=== PATIENT | female | born 1970 | race Caucasian/White ===

== ENCOUNTER 2018-06-08 16:53 | Inpatient (IN) | payer MEDICAID ==
[~2018-06-08] VITALS: Ht 149.9 cm; Wt 169.0 kg
[2018-06-08 18:23] LABS: BASOPHIL % 0.3 % (0-2); PLATELET COUNT 237 x10^3mcL (130-400)
[2018-06-08 18:27] LABS: RED CELL DISTRIBUTION WIDTH 15.4 % (11.5-14.5)
[2018-06-08 18:35] LABS: CALCIUM 8.8 mg/dL (8.5-10.1); CARBON DIOXIDE 32.1 mmol/L (21-32); CHLORIDE SERUM 103 mmol/L (98-107); CREATININE SERUM 0.8 mg/dL (0.6-1.0); GFR1 > 60 mL/min; GLUCOSE SERUM 118 mg/dL (74-106); SODIUM SERUM 140 mmol/L (136-145)
[2018-06-08 18:40] LABS: ALBUMIN 3.7 g/dL (3.4-5.0); ALKALINE PHOSPHATASE 82 U/L (46-116); ALT/SGPT 39 U/L (14-59); AST/SGOT 48 U/L (15-37); BILIRUBIN TOTAL 0.51 mg/dL (0.20-1.00); TOTAL PROTEIN, SERUM 8.5 g/dL (6.4-8.2)
[2018-06-08 21:19] LABS: CHOLESTEROL/HDL RATIO 3.3; MAGNESIUM 1.9 mg/dL (1.8-2.4)
[2018-06-08] MEDS ORDERED: PEPCID20 MG PO (21:23)
[2018-06-08] MEDS ORDERED: BANOPHEN25 MG PO (21:24)
[2018-06-08] MEDS ORDERED: ASPIR 8181 MG PO (21:25)
[2018-06-08] MEDS ORDERED: ZOFRAN8 MG PO (21:25)
[2018-06-08] MEDS ORDERED: GLIPIZIDE5 M2 PO (21:25)
[2018-06-08] MEDS ORDERED: LEVOXYL0.088 MG PO (21:26)
[2018-06-08] MEDS ORDERED: OMEGA-31000 MG PO (21:26)
[2018-06-08] MEDS ORDERED: BENAZEPRIL HYDR20 M1 PO (21:26)
[2018-06-08] MEDS ORDERED: JANUVIA100 M1 PO (21:26)
[2018-06-08 22:22] VITALS: Ht 149.9 cm; Wt 169.0 kg
[2018-06-08 22:53] VITALS: BP 132/71
[2018-06-09 00:45] VITALS: BP 132/71
[2018-06-09 05:23] VITALS: BP 123/74
[2018-06-09 06:45] LABS: BASOPHIL % 0.3 % (0-2); PLATELET COUNT 241 x10^3mcL (130-400)
[2018-06-09 06:47] LABS: RED CELL DISTRIBUTION WIDTH 15.6 % (11.5-14.5)
[2018-06-09 07:20] LABS: CALCIUM 8.8 mg/dL (8.5-10.1); CARBON DIOXIDE 31.1 mmol/L (21-32); CHLORIDE SERUM 101 mmol/L (98-107); CREATININE SERUM 0.8 mg/dL (0.6-1.0); GFR1 > 60 mL/min; GLUCOSE SERUM 111 mg/dL (74-106); POTASSIUM SERUM 4.2 mmol/L (3.5-5.1); SODIUM SERUM 140 mmol/L (136-145)
[2018-06-09 09:06] LABS: microscopic required? NO
[2018-06-09 09:29] LABS: UA SPECIFIC GRAVITY 1.025 (1.005-1.035); urine erythrocyte NEGATIVE (NEGATIVE)
[2018-06-09 09:51] VITALS: BP 112/59
[2018-06-09 13:26] VITALS: BP 134/62
[2018-06-09 17:14] LABS: AMPHETAMINE QUAL UR NONE DETECTED (See below)
[2018-06-09 18:03] VITALS: BP 142/77
[2018-06-09 21:24] VITALS: BP 127/69
[2018-06-10 06:17] LABS: BASOPHIL % 0.4 % (0-2); PLATELET COUNT 267 x10^3mcL (130-400)
[2018-06-10 06:18] VITALS: BP 141/78
[2018-06-10 06:41] LABS: CALCIUM 8.8 mg/dL (8.5-10.1); CARBON DIOXIDE 31.6 mmol/L (21-32); CHLORIDE SERUM 100 mmol/L (98-107); CREATININE SERUM 0.7 mg/dL (0.6-1.0); GFR1 > 60 mL/min; GLUCOSE SERUM 131 mg/dL (74-106); SODIUM SERUM 140 mmol/L (136-145)
[2018-06-10 06:56] LABS: RED CELL DISTRIBUTION WIDTH 15.3 % (11.5-14.5)
[2018-06-10 09:47] VITALS: BP 126/65
[2018-06-10 15:01] VITALS: BP 154/74
[2018-06-10 16:32] VITALS: BP 137/55
[2018-06-10 21:06] VITALS: BP 145/66
[2018-06-11 06:22] LABS: BASOPHIL % 0.3 % (0-2); PLATELET COUNT 229 x10^3mcL (130-400)
[2018-06-11 06:24] VITALS: BP 134/55
[2018-06-11 07:25] LABS: RED CELL DISTRIBUTION WIDTH 15.4 % (11.5-14.5)
[2018-06-11 07:37] LABS: CALCIUM 8.7 mg/dL (8.5-10.1); CARBON DIOXIDE 34.8 mmol/L (21-32); CHLORIDE SERUM 102 mmol/L (98-107); CREATININE SERUM 0.7 mg/dL (0.6-1.0); GFR1 > 60 mL/min; GLUCOSE SERUM 130 mg/dL (74-106); POTASSIUM SERUM 4.1 mmol/L (3.5-5.1); SODIUM SERUM 142 mmol/L (136-145)
[2018-06-11 09:00] VITALS: BP 130/56
[2018-06-11 12:01] VITALS: BP 122/74
[2018-06-11 13:48] VITALS: BP 122/74
[2018-06-11] MEDS ORDERED: PHEDML PO (13:59)
[2018-06-11] MEDS ORDERED: MOT600 PO (13:59)
[2018-06-11] MEDS ORDERED: LASIX40 MG PO (13:59)
== END 2018-06-11 15:38 | disposition home or self-care (01) | DRG 194 ==
LOC: ED 16:53 → DU 20:37
PROVIDERS: Emergency Medicine; ADMIT Internal Medicine
DX: I11.0 Hypertensive heart disease with heart failure (principal); Z99.81 Dependence on supplemental oxygen; I42.9 Cardiomyopathy, unspecified; E66.01 Morbid (severe) obesity due to excess calories; I50.9 Heart failure, unspecified; I25.10 Atherosclerotic heart disease of native coronary artery without angina pectoris; E11.9 Type 2 diabetes mellitus without complications; J45.909 Unspecified asthma, uncomplicated; F41.9 Anxiety disorder, unspecified; K21.9 Gastro-esophageal reflux disease without esophagitis; E03.9 Hypothyroidism, unspecified; Z79.82 Long term (current) use of aspirin; Z68.45 Body mass index [BMI] 70 or greater, adult
CPT/HCPCS: 82962; 83880; 85378; J1885; J1940; J2270; J2550; J7620; Q0092